=== PATIENT | male | born 1970 | race Caucasian/White ===

== ENCOUNTER → 2019-07-23 | Outpatient (CLI) | payer BC | LOC: COL.RAD 08:20 | DX: M89.58 Osteolysis, other site (principal); M89.8X8 Other specified disorders of bone, other site | CPT/HCPCS: A9503 ==

== ENCOUNTER → 2019-07-29 | Outpatient (CLI) | payer BC | LOC: COL.RAD 13:32 | DX: M89.8X5 Other specified disorders of bone, thigh (principal) | CPT/HCPCS: Q9967 ==